=== PATIENT | male | born 1990 | race Two or more races ===

== ENCOUNTER → 2024-11-19 | Outpatient (CLI) | payer MEDICAID, SELFPAY ==
--- NOTE | 2024-11-19 09:41 | XR_ITS ---
EXAMINATION: Ankle, left 3 views . Technique: Ankle AP, oblique, lateral 3 views Date and time of exam: November 19, 2024 0945 hours INDICATIONS: Ankle pain 13 years. FINDINGS: No fracture or dislocation No significant arthritic change IMPRESSION: No significant arthritic change
--- NOTE | 2024-11-19 09:41 | XR_ITS ---
Examination: Knee, left , 3 views Technique: Knee AP, lateral, oblique 3 views Date and time of exam: November 19, 2024 0945 hours INDICATIONS: Knee pain 8 years. FINDINGS: Mild narrowing medial joint space No fracture or dislocation IMPRESSION: Mild narrowing medial joint space
== END | disposition home or self-care (01) ==
PROVIDERS: PCP Family Medicine Adult Medicine; Referring Provider Family Medicine Adult Medicine; Visit Provider Family Medicine Adult Medicine
DX: M25.572 Pain in left ankle and joints of left foot (principal); S89.92XA Unspecified injury of left lower leg, initial encounter
CPT/HCPCS: 73564; 73610